=== PATIENT | female | born 1985 ===

== ENCOUNTER → 2023-02-15 12:48 | Outpatient (CLI) | payer MEDICAID, SELFPAY | PROVIDERS: Visit Provider Surgery | DX: S31.102A Unspecified open wound of abdominal wall, epigastric region without penetration into peritoneal cavity, initial encounter (principal); T81.31XA Disruption of external operation (surgical) wound, not elsewhere classified, initial encounter; E11.622 Type 2 diabetes mellitus with other skin ulcer; Z72.0 Tobacco use | CPT/HCPCS: 11042; 87070; 87075; 87077; 87147; 87205; 99204; 99211 ==